=== PATIENT | female | born 1970 | race Caucasian/White ===

== ENCOUNTER 2016-09-15 22:02 | Emergency (ER) | payer MEDICAID ==
[~2016-09-15] VITALS: Ht 160 cm; Wt 56.7 kg
[2016-09-15 23:00] VITALS: BP 144/84
== END 2016-09-16 01:24 | disposition home or self-care (01) ==
LOC: ER 22:02
DX: S09.90XA Unspecified injury of head, initial encounter (principal); R51 Headache; Z88.1 Allergy status to other antibiotic agents; Y04.0XXA Assault by unarmed brawl or fight, initial encounter; Y93.89 Activity, other specified; Y99.8 Other external cause status; Y92.89 Other specified places as the place of occurrence of the external cause
CPT/HCPCS: 70450-TC; A4606; Z7610